=== PATIENT | female | born 1940 | race Caucasian/White ===

== ENCOUNTER 2019-12-25 11:13 | Emergency (ER) | payer OTHER, MEDICARE ==
[2019-12-25] MEDS ORDERED: ONDANSETRON 4 MG/2 ML VIAL IVPUSH ONE (11:33)
[2019-12-25] MEDS ORDERED: SODIUM CHLORIDE 0.9% 1000 ML INFUS.BAG IV ONE (11:33)
[2019-12-25 11:36] VITALS: BP 97/46; PULSE 58; TEMP 98.2; BMI 23.3
[2019-12-25] MEDS ORDERED: ONDANSETRON 4 MG/2 ML VIAL ONE (11:42)
[2019-12-25 12:08] LABS: BASO % 0.5 % (0-2.0); EOS % 0.6 % (0-4.5); HEMATOCRIT 44.3 % (32.4-45.2); HEMOGLOBIN 14.6 GM/dl (10.7-15.3); LYMPH % 13.3 % (8-40); MCHC 32.9 g/dl (32.0-36.0); MEAN CELL VOLUME 100.3 fl (80-96); MEAN PLT VOLUME 7.7 fl (7.5-11.1); MONO % 9.8 % (3.8-10.2); NEUT % 75.8 % (42.8-82.8); PLATELET COUNT 322 K/MM3 (134-434); RBC 4.42 M/mm3 (3.60-5.2); RDW 12.4 % (11.6-15.6); WHITE BLOOD COUNT 8.4 K/mm3 (4.0-10.8)
[2019-12-25 12:21] LABS: ALBUMIN 3.3 g/dl (3.4-5.0); BILIRUBIN,TOTAL 1.6 mg/dl (0.2-1); CALCIUM 8.4 mg/dl (8.5-10); POTASSIUM 3.9 mmol/L (3.5-5.1)
--- NOTE | 2019-12-25 14:18 | PDOC ---
History of Present Illness - General Chief Complaint: Nausea/Vomiting Stated Complaint: NAUSEA Time Seen by Provider: 12/25/19 11:25 History Source: Patient Exam Limitations: No Limitations - History of Present Illness Initial Comments: 12/25/19 14:14 79-year-old female history of GERD here today with nausea vomiting x2 overnight. Patient is complaining of mild epigastric pain and persistent feeling of nausea denies any fevers chills no sick contacts no cough no chest pain or chest tightness no other complaints no sick contacts denies any body aches does have a history of GERD and thought this may be similar but were concerned that maybe she had COVIDDenies any urinary symptoms Past History - Medical History Allergies/Adverse Reactions: Allergies Allergy/AdvReac Type Severity Reaction Status Date / Time No Known Allergies Allergy Verified 12/25/19 11:15 Home Medications: Ambulatory Orders Apixaban [Eliquis] 5 mg PO BID 12/25/19 Omeprazole Magnesium [Prilosec Otc] 20 mg PO DAILY 12/25/19 COPD: No - Psycho-Social/Smoking History Smoking History: Never smoked Have you smoked in the past 12 months: No Information on smoking cessation initiated: No - Substance Abuse Hx (Audit-C & DAST Scrn) How often the patient has a drink containing alcohol: Never Score: In Men: 4 or > Positive; In Women: 3 or > Positive: 0 Screen Result (Pos requires Nsg. Audit-10AR): Negative In the last yr the pt used illegal drug/Rx for NonMed reason: No Score: Yes response is considered Positive: 0 Screen Result (Positive result requires Nsg. DAST-10): Negative Review of Systems - Review of Systems Constitutional: No: Chills HEENTM: No: Eye Pain Respiratory: No: Cough, Shortness of Breath Cardiac (ROS): No: Chest Pain ABD/GI: Yes: Nausea, Vomiting : No: Burning, Dysuria, Discharge Integumentary: No: Bruising All Other Systems: Reviewed and Negative *Physical Exam - Vital Signs Last Vital Signs Temp Pulse Resp BP Pulse Ox 98.2 F 58 L 20 97/46 L 98 12/25/19 11:14 12/25/19 11:14 12/25/19 11:14 12/25/19 11:14 12/25/19 11:14 - Physical Exam 12/25/19 14:15 Awake alert no acute distress lungs are clear bilaterally heart is regular with no murmurs rubs or gallops abdomen soft mild left lower quadrant tenderness r no rebound no guarding. Patient is awake alert and oriented x3 ED Treatment Course - LABORATORY CBC & Chemistry Diagram: 12/25/19 12:00 12/25/19 12:00 - ADDITIONAL ORDERS Additional order review: Laboratory Results 12/25/19 12/25/19 12:00 11:37 Sodium 138 Potassium 3.9 Chloride 102 Carbon Dioxide 25 Anion Gap 11 BUN 26.0 H Creatinine 1.0 Est GFR (CKD-EPI)AfAm 62.05 Est GFR (CKD-EPI)NonAf 53.54 Random Glucose 88 Calcium 8.4 L Total Bilirubin 1.6 H AST 29 ALT 32 Alkaline Phosphatase 74 Total Protein 6.0 L Albumin 3.3 L Urine Color Yellow Urine Appearance Clear Urine pH 5.0 Urine Protein Negative Urine Glucose (UA) Negative Urine Ketones Negative Urine Blood Negative Urine Nitrite Negative Urine Bilirubin Negative Urine Urobilinogen 0.2 Ur Leukocyte Esterase Negative 12/25/19 12:00 RBC 4.42 MCV 100.3 H MCHC 32.9 RDW 12.4 MPV 7.7 Neutrophils % 75.8 Lymphocytes % 13.3 Monocytes % 9.8 Eosinophils % 0.6 Basophils % 0.5 - RADIOLOGY Radiology Studies Ordered: Category Date Time Status ABDOMEN & PELVIS CT WITH CONTR [CT] Stat CT Scan 12/25/19 11:32 Completed - Medications Given in the ED: ED Medications Discontinued Medications Generic Name Dose Route Start Last Admin Trade Name Freq PRN Reason Stop Dose Admin Ondansetron HCl 4 mg 12/25/19 11:33 12/25/19 12:05 Zofran Injection IVPUSH 12/25/19 11:34 4 mg ONCE ONE Administration Sodium Chloride 1,000 ml 12/25/19 11:33 12/25/19 12:04 Normal Saline - IV 12/25/19 11:34 1,000 ml ONCE ONE Administration Medical Decision Making - Medical Decision Making 79-year-old history of GERD prior hysterectomy here with nausea vomiting x2 and mild left lower quadrant tenderness on exam. Differential includes diverticulitis obstruction less likely UTI pyelo-plan basic labs CBC CMP UA to rule out infection CT abdomen pelvis CT abdomen pelvis is negative for any acute diverticulitis or other pathology. Labs are unremarkable including a negative UA EKG was obtained showed a normal sinus rhythm at [address] elevations or depressions nonspecific T wave inversions in lead III only 12/25/19 14:11 CT abdomen pelvis is negative for any acute pathology EKG is normal sinus rhythm T wave inversion in lead III only nonspecific labs are unremarkable otherwise UA is negative for UTI patient requesting COVID test will be sent likely discharge to home follow-up with her GI for GERDWe will give a trial of p.o. prior to discharge. We will give follow-up with GI Discharge - Discharge Information Problems reviewed: Yes Clinical Impression/Diagnosis: GERD (gastroesophageal reflux disease) Condition: Improved Disposition: HOME - Admission No - Follow up/Referral - Patient Discharge Instructions Patient Printed Discharge Instructions: DI for Vomiting -- Adult, Gastroesophageal Reflux Disease (Alternative Therapy) Additional Instructions: Your CAT scan today is negative for any acute pathology or process to explain her vomiting. Is possible this is related to your reflux. Your labs are unremarkable including a negative basic blood count no anemia normal liver function tests and a negative urinalysis. Your EKG is unremarkable in addition. You should follow-up with your waste reclaimer if you do not have [address] Beyer to see the referral information for his phone number and call to schedule appointment within the next 2 weeks your COVID test was sent and is pending results will be back for 48hours they will call you upon receiving results of your test - Post Discharge Activity
== END 2019-12-25 14:41 | disposition home or self-care (01) ==
LOC: FER 11:13
PROC: 3E033GC Introduction of Other Therapeutic Substance into Peripheral Vein, Percutaneous Approach (ICD-10-PCS; principal; 2019-12-25)
DX: K21.9 Gastro-esophageal reflux disease without esophagitis (principal)
CPT/HCPCS: 36415; 74177-TC; 80053; 81003; 85025; 99285-25; Q9967; U0003

== ENCOUNTER 2020-05-13 12:20 | Emergency (ER) | payer MEDICARE, OTHER ==
[2020-05-13 12:38] VITALS: BP 126/57; PULSE 50; TEMP 97; BMI 24.1
== END 2020-05-13 13:50 | disposition home or self-care (01) ==
LOC: FER 12:20
DX: R07.89 Other chest pain (principal)
CPT/HCPCS: 71046-TC-FY; 99283-25

== ENCOUNTER 2022-09-21 17:52 | Emergency (ER) | payer OTHER, MEDICARE ==
[2022-09-21] MEDS ORDERED: SODIUM CHLORIDE 0.9% 1000 ML INFUS.BAG IV ONE (18:02)
[2022-09-21 18:14] VITALS: BP 131/55; PULSE 82; RESP 18; TEMP 98.3; BMI 25.7
[2022-09-21] MEDS ORDERED: FAMOTIDINE 20 MG TABLET PO ONE (18:15)
[2022-09-21 18:23] LABS: HEMATOCRIT 40.4 % (32.4-45.2); HEMOGLOBIN 13.6 G/dL (10.7-15.3); MCH 32.8 pg (25.7-33.7); MCHC 33.7 g/dl (32.0-36.0); MEAN CELL VOLUME 97.3 fl (80-96); MEAN PLT VOLUME 8.2 fl (7.5-11.1); PLATELET COUNT 211.8 10^3/uL (134-434); RBC 4.15 10^6/uL (3.60-5.2); RDW 14.4 % (11.6-15.6); WHITE BLOOD COUNT 7.3 10^3/uL (4.0-10.8)
[2022-09-21] MEDS ORDERED: FAMOTIDINE 20 MG TABLET ONE (18:28)
[2022-09-21 18:35] LABS: ALBUMIN 3.8 g/dl (3.4-5.0); BILIRUBIN,TOTAL 1.7 mg/dl (0.2-1); CALCIUM 8.8 mg/dl (8.5-10); CREATININE 1.2 mg/dl (0.55-1.3); POTASSIUM 4.1 mmol/L (3.5-5.1); TOT PROT 6.4 g/dl (6.4-8.2)
[2022-09-21 19:31] LABS: PLATELET ESTIMATE ADEQUATE
== END 2022-09-21 19:03 | disposition home or self-care (01) ==
LOC: FER 17:52
DX: R11.2 Nausea with vomiting, unspecified (principal); R51.9 Headache, unspecified
CPT/HCPCS: 36415; 80053; 81003; 84484; 85027; 93005; 99284-25

== ENCOUNTER 2023-05-04 23:05 | Emergency (ER) | payer OTHER, MEDICARE ==
[2023-05-04 23:30] VITALS: TEMP 97.5; BMI 26.4
[2023-05-05 01:12] VITALS: BP 102/66; PULSE 98; RESP 18
== END 2023-05-05 01:17 | disposition home or self-care (01) ==
LOC: FER 23:05
DX: R00.2 Palpitations (principal)
CPT/HCPCS: 36415; 82550; 84484; 93005; 99284-25

== ENCOUNTER 2023-11-14 18:06 | Emergency (ER) | payer OTHER, MEDICARE ==
[2023-11-14 18:22] VITALS: BP 140/71; PULSE 60; RESP 18; TEMP 98.1; BMI 26.2
== END 2023-11-14 18:25 | disposition home or self-care (01) ==
LOC: FER 18:06 → SUPCPDRO 18:06 → FER 18:25
DX: I10 Essential (primary) hypertension (principal)
CPT/HCPCS: 99282-25